=== PATIENT | female | born 1980 | race American Indian/Alaskan Native ===

== ENCOUNTER 2025-02-06 13:06 | Observation (INO) | payer OTHER ==
[~2025-02-06] VITALS: Ht 167.6 cm; Wt 69.0 kg
[~2025-02-06 13:06] MED LIST: VISTARIL25 MG
[2025-02-06 14:09] LABS: BASOPHILS 0.3 % (0.1-1.2); EOSINOPHILS 0.2 % (0.7-5.8); LYMPHOCYTES 7.6 % (19.3-51.7); MCH 32.4 PG (25.6-32.2); MCHC 34.2 g/dL (32.2-35.5); MCV 94.6 fL (79.4-94.8); MONOCYTES 9.1 % (4.7-12.5); NEUTROPHILS 82.0 % (34.0-71.1); RBC 4.48 M/uL (3.93-5.22)
[2025-02-06] MEDS ORDERED: SODIUM CHLORIDE 0.9% 1,000 ML IV PRN ×2 (14:15→15:15)
[2025-02-06 14:29] LABS: ALT (SGPT) 37.0 U/L (14-59); AST (SGOT) 40.0 U/L (15-37); GLOMERULAR FILTRATION RATE,EST 56.0 mL/min (>60); PROTEIN, TOTAL 9.0 g/dL (6.4-8.2); UREA NITROGEN 12.0 mg/dL (7-18)
[2025-02-06] MEDS ORDERED: HYDROmorphone HCL 1 MG/ML SYR IV ONE (14:30)
[2025-02-06] MEDS ORDERED: KETOROLAC TROMETHAMINE 30 MG/ML VIAL IV PRN (17:00)
[2025-02-06] MEDS ORDERED: MORPHINE SULFATE 10 MG/ML VIAL IV PRN (17:00)
[2025-02-06] MEDS ORDERED: LACTATED RINGER'S 1,000 ML IV SCH (17:00)
[2025-02-06] MEDS ORDERED: LORazepam 2 MG/ML VIAL IV PRN (17:15)
[2025-02-06 17:28] LABS: BLOOD/HGB, URINE MODERATE (Negative); KETONE, URINE NEGATIVE (Negative); LEUK ESTERASE, URINE SMALL (negative); NITRITE, URINE POSITIVE (negative)
--- NOTE | 2025-02-06 17:30 | NUR ---
THIS RN TO ED ROOM 10 TO RECEIVE REPORT FROM ALEK IRWIN RN AND TRANSPORT PT VIA STRETCHER TO MS RM 116. PT AMBULATES FROM STRETCHER TO HOSPITAL BED WITH SUPERVISION ONLY. WT AND VS OBTAINED. THIS RN REMAINS IN ROOM FOR ADMISSION.
[2025-02-06 17:33] LABS: EPITHELIAL CELLS, URINE SQUAMOUS 2+ /lpf (0-1+)
[2025-02-06 17:34] LABS: BACTERIA, URINE 1+ /hpf (negative); CASTS, URINE NONE SEEN \\lpf; CRYSTALS, URINE NONE SEEN (0-1+); REFLEX CULTURE, URINE No (No)
[2025-02-06 17:41] VITALS: BP 126/79
[2025-02-06] MEDS ORDERED: POTASSIUM CHLORIDE 10 MEQ TABCR PO SCH (18:00)
--- NOTE | 2025-02-06 18:17 | NUR ---
ADMISSION COMPLETE. PT IS RESTING IN BED WATCHING TELEVISION AND EATING ICE CHIPS. PT REPORTING PAIN HAS DECREASED TO 4/10 AFTER MORPHINE ADMINISTRATION IN ED JUST PRIOR TO THIS RN'S ARRIVAL AND HOT PACK APPLIED TO ABDOMEN. BOWEL TONES ARE ACTIVE, PT IS TENDER TO THE RUQ ONLY. DENIES NAUSEA AT THIS TIME. IVF INFUSING TO LAC WNL. SCDs IN PLACE. PT IS OCCASIONAL TEARFUL DURING ADMISSION AND REPORTS THIS IS DUE TO THOUGHTS OF HER CHILDREN AND HER CONCERNS REGARDING HER DRINKING PATTERNS. PT REPORTS SHE LAST DRANK SATURDAY AND WHEN SHE DRINKS SHE GENERALLY DRINKS A PINT AT A TIME. PT DENIES ANY WITHDRAWALS IN HER PAST. PTs CIWA CURRENTLY A 2 FOR TEARFULNESS/ANXIETY. PT HAS NO REQUESTS. CALL LIGHT IN REACH.
--- NOTE | 2025-02-06 19:00 | NUR ---
PT RESTING IN BED WITH EYES CLOSED, RR EVEN AND UNLABORED. CALL LIGHT IN REACH.
--- NOTE | 2025-02-06 19:45 | NUR ---
RECEIVED REPORT. PT RESTING IN BED WITH EYES CLOSED, RISE AND FALL OF CHEST OBSERVED. CALL LIGHT IN REACH
--- NOTE | 2025-02-06 20:00 | NUR ---
PATIENT CALLED THE NURSES STATION TO REQUEST MORE ICE WATER AND JELLO, THIS IS PROVIDED, PATIENT IS ALERT AND ORIENTED. PATIENT IS RESTING IN BED CALM AND PLEASANT AFFECT. V/S STABLE AT THIS TIME. SEE CHARTING
[2025-02-06 20:03] VITALS: BP 134/89
[2025-02-06 20:48] VITALS: BP 124/70
[2025-02-06 20:49] VITALS: BP 124/70
--- NOTE | 2025-02-06 20:58 | NUR ---
VITALS, ASSESSMENT, EVENING MEDS. PT REPORTS 6/10 PAIN, GIVEN IV TORADOL AND REFRESHED HEAT PACK. ORIENTED TO PLAN FOR TONIGHT AND PLAN FOR SURGERY TOMORROW. NO OTHER NEEDS, CALL HAYDEE MATAMOROS
[2025-02-06] MEDS ORDERED: FAMOTIDINE 20 MG/ 2 ML VIAL IV SCH (21:00)
[2025-02-06] MEDS ORDERED: CEFAZOLIN SODIUM 2 GM/20 ML SYR IV SCH (22:00)
--- NOTE | 2025-02-06 22:13 | NUR ---
PT RESTING WITH EYES CLOSED, RISE AND FALL OF CHEST OBSERVED. CALL LIGHT IN REACH
--- NOTE | 2025-02-06 23:45 | NUR ---
PT RESTING IN BED WITH EYES CLOSED, RISE AND FALL OF CHEST OBSERVED, CALL LIGHT IN REACH
[2025-02-07] VITALS (11 sets, daily range): BP systolic 99–129; BP diastolic 63–84
--- NOTE | 2025-02-07 00:52 | NUR ---
VITALS, AM MEDS. GIVEN PRN MORPHINE FOR 4/10 INCREASING PAIN. REPLACED HEAT PACK AND GIVEN WARM BLANKET. REMOVED WATER FROM BEDSIDE, PT NOW NPO. NO OTHER NEEDS, CALL LIGHT INREACH
--- NOTE | 2025-02-07 02:46 | NUR ---
GIVEN 2MG IV MORPHINE FOR INCREASING 4/10 PAIN. ALSO GIVEN HEAT PACK AND WARM BLANKET. REPLACED IV FLUIDS. SUPPORTIVE PARENTS AT BEDSIDE. CALL LIGHT IN REACH
[2025-02-07 05:24] LABS: BASOPHILS 0.2 % (0.1-1.2); EOSINOPHILS 1.0 % (0.7-5.8); LYMPHOCYTES 7.3 % (19.3-51.7); MCH 32.7 PG (25.6-32.2); MCHC 33.9 g/dL (32.2-35.5); MCV 96.4 fL (79.4-94.8); MONOCYTES 10.3 % (4.7-12.5); NEUTROPHILS 80.5 % (34.0-71.1); RBC 3.09 M/uL (3.93-5.22)
[2025-02-07 05:41] LABS: ALT (SGPT) 22.0 U/L (14-59); AST (SGOT) 16.0 U/L (15-37); GLOMERULAR FILTRATION RATE,EST 63.0 mL/min (>60); PROTEIN, TOTAL 6.1 g/dL (6.4-8.2); UREA NITROGEN 14.0 mg/dL (7-18)
--- NOTE | 2025-02-07 06:19 | NUR ---
AM MEDS, GIVEN PRN TORADOL FOR 4/10 PAIN. PERFORMED CHG [place] AND CHANGED BED LINENS. GIVEN ORAL SWABS AND TOOTHBRUSH/TOOTHPASTE ON REQUEST. NO OTHER NEEDS, CALL LIGHT IN REACH
--- NOTE | 2025-02-07 07:10 | NUR ---
REPORT RECIEVED FROM MILDRED CASEY. PATIENT RESTING IN BED WITH HER EYES CLOSED. EVEN AND UNLABORED RESPIRATIONS NOTED. CALL LIGHT AND PERSONAL BELONGINGS ARE WITHIN REACH.
--- NOTE | 2025-02-07 09:18 | NUR ---
HOURLY ROUNDING. PATIENT APPEARS TO BE TIRED, SAYS SHE GASSY AND THAT FEELS GOOD TO HER. BOARD HAS BEEN UPDATED AND CALL LIGHT HAS BEEN PLACED WITHIN REACH
--- NOTE | 2025-02-07 09:55 | NUR ---
PATIENT SITTING UP IN BED VISITING WITH HER MOM. PATIENT REPORTS PAIN "IS OKAY FOR NOW IF I'M NOT MOVING, BUT IS BETTER THAN EARLIER". PATIENT WITHOUT FURTHER NEEDS AT THIS TIME. CALL LIGHT AND PERSONAL BELONGINGS ARE WITHIN REACH.
--- NOTE | 2025-02-07 10:13 | NUR ---
PATIENT SITTING UP IN BED VISITING WITH HER MOM. FRESH COFFEE PROVIDED TO PATIENT'S MOM. PATIENT WITHOUT ANY NEEDS AT THIS TIME. CALL LIGHT AND PERSONAL BELONGINGS ARE WITHIN REACH.
--- NOTE | 2025-02-07 10:55 | NUR ---
MED REC COMPLETE
[2025-02-07] MEDS ORDERED: SODIUM CHLORIDE 0.9% 60 ML IV ONE (11:12)
--- NOTE | 2025-02-07 11:25 | NUR ---
PATIENT REQUESTING PAIN MEDICATION. THIS RN IN ROOM TO MEDICATE PATIENT. WHEN ENTERED ROOM, PATIENT REPORTED HER FINGERS WERE NUMB. AFTER ASSESSING PATIENT HANDS, PATIENT'S FINGERTIPS WERE NOTED TO BE PALE. PATIENT DENIES HAVING A HISTORY OF RAYNAUD'S SYNDROME. VITAL SIGNS WERE TAKEN AND WERE STABLE. PATIENT MEDICATED PER EMAR. BEFORE LEAVING PATIENT'S ROOM, COLOR WAS NOTED TO HAVE RETURNED TO PATIENT'S BILATERAL FINGER TIPS AND PATIENT STATES THE "NUMBNESS IS GOING AWAY". PATIENT WITHOUT FURTHER NEEDS AT THIS TIME. CALL LIGHT AND PERSONAL BELONGINGS ARE WITHIN REACH.
--- NOTE | 2025-02-07 12:17 | NUR ---
PATIENT OFF THE FLOOR AT THIS TIME.
[2025-02-07] MEDS ORDERED: ACETAMINOPHEN 1,000 MG/100 ML VIAL ONE (12:42)
--- NOTE | 2025-02-07 13:29 | NUR ---
02/07/25 1329 Sheets,Sunita 1321 PT ARRIVED TO PACU ON 6L VIA MASK, PT ASLEEP AND RESP EVEN AND UNLABORED. ORAL AIRWAY IN PLACE, HOB INCREASED SLIGHTLY.
[2025-02-07] MEDS ORDERED: ROCURONIUM BROMIDE 50 MG/5 ML SYR ONE (13:30)
[2025-02-07] MEDS ORDERED: KETOROLAC TROMETHAMINE 30 MG/ML VIAL ONE (13:30)
[2025-02-07] MEDS ORDERED: KETAMINE in NS 50 MG/5 ML SYR ONE (13:30)
[2025-02-07] MEDS ORDERED: DEXAMETHASONE SOD PHOS 4 MG/ML VIAL ONE (13:30)
[2025-02-07] MEDS ORDERED: LIDOCAINE HCL 2% 5 ML SDV ONE (13:30)
[2025-02-07] MEDS ORDERED: TYLENOL EXTRA500 MG PO (13:37)
[2025-02-07] MEDS ORDERED: MOTRIN IB200 MG PO (13:37)
[2025-02-07] MEDS ORDERED: HYDROCODON-ACE1 EA11 PO (13:38)
--- NOTE | 2025-02-07 14:05 | NUR ---
REPORT RECIEVED FROM MILDRED TINOCO. PATIENT SELF TRANSFERED FROM STRETCHER TO HOSPITAL BED. PATIENT REPORTS HAVING MINIMAL TO NO PAIN AT THIS TIME. VITAL SIGNS TAKEN AND ARE STABLE. SCD'S CONNECTED AND TURNED ON. LR INFUSING CONTINUOUS AT 100ML/HR. PATIENT FATHER AT BEDSIDE. PATIENT IS 98% ON ROOM AIR. CPOX AT BEDSIDE. PATIENT WITHOUT ANY NEEDS AT THIS TIME. CALL LIGHT AND PERSONAL BELONGINGS ARE WITHIN REACH.
[2025-02-07] MEDS ORDERED: IBUPROFEN 600 MG TAB PO PRN (14:15)
[2025-02-07] MEDS ORDERED: ACETAMINOPHEN 500 MG TAB PO PRN (14:15)
[2025-02-07] MEDS ORDERED: OXYCODONE HCL 5 MG TAB PO PRN (14:15)
[2025-02-07] MEDS ORDERED: SEVOFLURANE 250 ML BTL INH ONE (14:43)
--- NOTE | 2025-02-07 15:06 | NUR ---
HOURLY POST OP VITALS STABLE. PT RESTING IN BED AAO, DENIES PAIN. LAP SITES C/D/I. CALL LIGHT IN REACH. PRIMARY RN UPDATED.
--- NOTE | 2025-02-07 15:30 | NUR ---
PATIENT EATING JELLO AND APPLESAUCE AND TOLERATING WELL. SANDWICH BOX PROVIDED. PATIENT DENIES ANY PAIN OR NAUSEA. PATIENT WITHOUT FURTHER NEEDS. FRESH ICE WATER PROVIDED. CALL LIGHT AND PERSONAL BELONGINGS ARE WITHIN REACH. PATIENT IS 98% ON ROOM AIR. CPOX AT BEDSIDE.
--- NOTE | 2025-02-07 16:10 | NUR ---
PATIENT UP TO BATHROOM TO VOID. INCISIONS ARE WITH MINIMAL DRAINAGE. PATIENT VOIDED WITHOUT COMPLICATIONS. PATIENT ABLE TO EAT HALF A SANDWICH AND TOLERATING WELL. PATIENT MEDICATED PER EMAR FOR 4/10 PAIN. PATIENT DENIES ANY NAUSEA. FRESH ICE WATER PROVIDED. PATIENT WITHOUT FURTHER NEEDS AT THIS TIME. PATIENT IS 99% ON ROOM AIR, CPOX AT BEDSIDE. PATIENT MOM AT BEDSIDE. CALL LIGHT AND PERSONAL BELONGINGS ARE WITHIN REACH. VITAL SIGNS TAKEN AND ARE STABLE.
--- NOTE | 2025-02-07 16:46 | NUR ---
DR KAMARA NOTIFIED OF PATIENT MEETING CRITERIA FOR DISCHARGE PER ORDER.
--- NOTE | 2025-02-07 19:03 | OR ---
[facility] [address], [place] [address] Signed DATE OF OPERATION: 02/07/2025 SURGEON: Troy Kamara MD PREOPERATIVE DIAGNOSIS: Acute calculous cholecystitis. POSTOPERATIVE DIAGNOSIS: Acute calculous cholecystitis (single large gallstone). PROCEDURES: 1. Laparoscopic cholecystectomy with intraoperative cholangiogram. 2. Surgeon-directed fluoroscopy. 3. Adhesiolysis of right hepatic lobe adhesions of capsule of liver to diaphragm. ANESTHESIA: General endotracheal; Linda Nassar CRNA and local 10 mL of 0.25% Marcaine with epinephrine. INDICATION: This 44-year-old woman presented to the emergency room yesterday with significant right upper abdominal pain. Evaluation showed a white count of 22,000. She did have a sepsis workup. Her lactate was normal. Gallbladder ultrasound showed a single large gallstone without thickening of the gallbladder wall. She is admitted at this time to undergo cholecystectomy preferred by laparoscopic approach. She understands the risk of bleeding, infection, common duct injury, need for other indicated procedures and of course failure to cure her symptoms. She has been fully resuscitated and has been with antibiotic therapy for the past 24 hours. FINDINGS: She had no ascites or carcinomatosis. The liver itself was normal, though she did have capsule adhesions of the liver to the diaphragm. These were incised. The gallbladder itself was subacutely inflamed. Once excised, the gallbladder had a single large gallstone. Intraoperative cholangiogram was normal. There were no other findings of concern. DESCRIPTION OF PROCEDURE: The patient was brought to the operating room, given a general endotracheal anesthetic. Antibiotic Ancef was given intraoperatively just before surgery. Sequential compression device stockings were used and heparin subcutaneously administered. After satisfactory Electronically Signed By: TROY KAMARA MD 02/07/25 1903 PATIENT NAME: MARICRUZ PARKER OPERATIVE REPORT DATE OF : 82 REPORT #: [id number] PHYSICIAN: TROY KAMARA MD PCP: VI OLEARY [facility] REPORT IS CONFIDENTIAL AND NOT TO BE RELEASED WITHOUT AUTHORIZATION [facility] [address], [place] [address] Signed general endotracheal anesthesia, the abdomen was prepared with chlorhexidine solution and draped sterilely. An infraumbilical incision was made and using an open Emily cannula technique pneumoperitoneum was achieved to a level of 14 mmHg of carbon dioxide gas. Intra-abdominal inspection showed no sign of ascites or carcinomatosis. The liver itself had mild fatty infiltration, but relatively extensive adhesions in the capsule of the liver to the diaphragm. Three additional trocars were placed in usual configuration in the subxiphoid, right midclavicular, and right anterior axillary line. Prior to elevating the gallbladder, lysis of adhesions over the liver were undertaken so as to avoid excessive trauma in the capsule of the liver with elevation of the gallbladder. Gallbladder was grasped and elevated cephalad exposing relatively elongated subacutely inflamed gallbladder. The infundibulum was grasped and retracted laterally and using blunt electrocautery dissection the triangle of Calot was dissected free. A dominant cystic artery was identified and doubly clipped and later divided. Ultimately, the cystic duct itself was well identified. Critical view of safety was maintained and assured for this. A clip was applied high on the gallbladder cystic duct junction and a transverse choledochotomy made in the cystic duct. Egress of thickened yellow bile was noted. Using an Merchant type cholangiocatheter free flow of contrast was noted in the biliary tree with prompt emptying into the duodenum. The cystic duct was relatively lengthy. With additional injection, retrograde filling to the common hepatic duct was noted. The catheter was removed. The cystic duct was triply clipped and divided. The gallbladder was then dissected free in a retrograde fashion using electrocautery. Gallbladder was extracted through the infraumbilical port site without problem opened on the back table, found to have a single large round dark gallstone. The mucosa showed subacute inflammation. Irrigation was undertaken in the subhepatic space. There was no sign of bile leak, bleeding or other problems. The trocars removed under direct visualization showing no sign of bleeding. Plans were then made for closure. The infraumbilical fascial incision was reapproximated with interrupted 0 Vicryl suture. 10 mL of 0.25% Marcaine with epinephrine injected locally. The skin was then closed with interrupted 3-0 Vicryl. Steri-Strips were applied. The patient was ultimately extubated and transferred to the recovery room in good condition having suffered no complications. Sponge, needle, and instrument counts reported as correct x3. MD JAXSON Denney/KALYANL /[id number] Electronically Signed By: TROY KAMARA MD 02/07/25 1903 PATIENT NAME: MARICRUZ PARKER OPERATIVE REPORT DATE OF : [birth year] REPORT #: [id number] PHYSICIAN: TROY KAMARA MD PCP: VI OLEARY REPORT IS CONFIDENTIAL AND NOT TO BE RELEASED WITHOUT AUTHORIZATION [facility] [address] [facility] [place], [place] [address] Signed cc: Dr. Richardson Plasencia [facility] LOREN Santana [facility] Copies: ~ Electronically Signed By: TROY KAMARA MD 02/07/25 1903 PATIENT NAME: MARICRUZ PARKER OPERATIVE REPORT DATE OF : [birth year] REPORT #: [id number] PHYSICIAN: TROY KAMARA MD PCP: VI OLEARY REPORT IS CONFIDENTIAL AND NOT TO BE RELEASED WITHOUT AUTHORIZATION
--- NOTE | 2025-02-07 19:03 | HP ---
[facility] [address], [place] [address] Signed ADMISSION DATE: 02/06/2025 REASON FOR ADMISSION: Acute calculous cholecystitis. HISTORY OF PRESENT ILLNESS: This 44-year-old Mong[place]ian woman had presented to the emergency room and was evaluated thoroughly by Dr. Plasencia with complaints of upper right abdominal pain for the past "60 hours." She had no associated nausea, vomiting, or persistent and unrelenting pain. Evaluation in emergency room included lab studies, which showed an elevated white count of 22,000 with hematocrit of 42.4 with a platelet count of 311,000. Chem profile notable for hypokalemia with a potassium of 3.1, chloride 94, creatinine elevated at 1.22, lactic acid of 0.9, bilirubin 1.1, alkaline phosphatase of 230 with normal ALT of 37, AST of 40. Beta-hCG was noted to be negative. Urinalysis has not yet received. A gallbladder ultrasound was performed on the suspicion of acute cholecystitis, which confirmed multiple gallstones, but no evidence of gallbladder wall thickening per se. She is admitted at this time for further evaluation and care. PAST MEDICAL HISTORY: Dominantly notable for childbirth x6. Due to substance abuse issues, all of her children essentially live with other family. Her youngest is apparently 9 years old. The patient does actively smoke episodically. Still drinks alcohol and admits to occasional drug use including methamphetamine. The patient has had right ACL surgery, but no abdominal operations. SOCIAL HISTORY: She is . Her is not in attendance at this time, and children are out of her care at this time. PHYSICAL EXAMINATION: GENERAL: A very pleasant [place]ian woman who looks to be nontoxic. VITAL SIGNS: Height is 5 feet 6 inches, weight is 65 kg, BMI 23.3. NECK: Trachea is midline. She has no hoarseness. CHEST: Clear. HEART: Regular without murmur. ABDOMEN: Not obese and not distended. She has mild tenderness in the epigastric and right subcostal area. There is no ascites. EXTREMITIES: Show no clubbing, cyanosis, or edema. LAB STUDIES: As previously noted include a white count of 22.4, hematocrit 42.4, platelets 311,000. Electronically Signed By: TROY KAMARA MD 02/07/25 1903 PATIENT NAME: MARICRUZ PARKER HISTORY AND PHYSICAL DATE OF : 82 REPORT #: [id number] PHYSICIAN: TROY KAMARA MD PCP: VI OLEARY [facility] REPORT IS CONFIDENTIAL AND NOT TO BE RELEASED WITHOUT AUTHORIZATION [facility] [address], [place] [address] Signed Chem profile abnormal for potassium of 3.1, sodium 132, chloride 94, creatinine is 1.22, glucose 109, lactic acid 0.9, bilirubin 1.1, AST 40, ALT 37, alkaline phosphatase 230, and lipase 14. Beta-hCG is negative. Abdominal ultrasound confirms gallstones without gallbladder wall thickening. ASSESSMENT: She has clinical findings of acute cholecystitis and gallstones are noted as well. I discussed with her in detail using the white board in the emergency room, the pathophysiology of biliary disease including calculous cholecystitis and recommendation to include cholecystectomy. The risk of bleeding, infection, bile duct injury, need for open rather than laparoscopic approach, and so forth were all reviewed in detail. Also discussed the issues of possible common duct stone for which a laparoscopic and/or open common duct exploration would be a consideration if necessary. She will be admitted and given additional fluid resuscitation, electrolyte correction, IV antibiotics and allowed clear liquids in limited amounts for comfort, but n.p.o. after midnight and we will plan for cholecystectomy and other indicated procedures tomorrow as appropriate. She understands this and agrees with this plan. MD JAXSON Denney/KALYANL /[id number] Copies: ~ Electronically Signed By: TROY KAMARA MD 02/07/25 1903 PATIENT NAME: MARICRUZ PARKER HISTORY AND PHYSICAL DATE OF : 82 REPORT #: [id number] PHYSICIAN: TROY KAMARA MD PCP: VI OLEARY [facility] REPORT IS CONFIDENTIAL AND NOT TO BE RELEASED WITHOUT AUTHORIZATION
[2025-02-07] MEDS ORDERED: FAMOTIDINE 20 MG TAB PO SCH (21:00)
--- NOTE | 2025-02-11 12:21 | PATH ---
[facility] [address] [facility] [place], [place] [address] Signed SPECIMEN(S): A GALLBLADDER WITH STONE SPECIMEN SOURCE: A. GALLBLADDER WITH STONE CLINICAL HISTORY: Acute cholecystitis and cholelithiasis FINAL PATHOLOGIC DIAGNOSIS: Gallbladder, cholecystectomy: - Mild chronic cholecystitis with cholelithiasis. - Negative for dysplasia and malignancy. SDL MICROSCOPIC EXAMINATION: Histologic sections of all submitted blocks are examined by light microscopy. These findings, together with the gross examination, support the pathologic diagnosis. GROSS DESCRIPTION: The specimen, labeled and designated "Kaylyn Coles, gallbladder with stone," is received in formalin and consists of Specimen: Surgically disrupted gallbladder. Dimensions: 10.9 x 3 x 2.4 cm. Serosa: Blue-green and smooth. Cystic Duct: Unobstructed. Calculi: Present�black and multifaceted. Mucosa: Green and velvety. Wall thickness: 0.2 cm. Lymph node: No pericystic lymph nodes are grossly identified. Additional: None. Transcribing Operator Head sections are submitted in (A1). AA (under the direct supervision of a pathologist) The Gross Description was prepared using a voice recognition system. The report was reviewed for accuracy; however, sound-alike word errors, addition and/or deletions may occur. If there are any questions about this report, please contact Client Services. ADDITIONAL NOTES: Immunohistochemical and/or in situ hybridization studies if performed in this case included appropriate positive controls that reacted as expected. This PATIENT NAME: MARICRUZ COLES PATHOLOGY DATE OF : [birth year] REPORT #: [id number] PHYSICIAN: APOLLO GASTELUM PCP: VI OLEARY TRAIN DIRECTOR-BC REPORT IS CONFIDENTIAL AND NOT TO BE RELEASED WITHOUT AUTHORIZATION [facility] [address] [facility] [place] [address] Signed test was developed and its performance characteristics determined by [facility]. It has not been cleared or approved by the U.S. Food and Drug Administration. The FDA has determined that such clearance or approval is not necessary. This test is used for clinical purposes. It should not be regarded as investigational or for research. [facility] is certified under the Clinical Laboratory Improvement Amendments of 1988 (CLIA) as qualified to perform high complexity clinical laboratory testing. PERFORMING LABORATORY: Technical component was performed by [facility], [address] [place] [id number] (CLIA# [id number]). Professional interpretation was performed by [facility], [address] [place] [id number] (CLIA#: [id number]). Diagnostician: Jasmin Lyon MD Pathologist Electronically Signed 02/11/2025 Copies: ~ PATIENT NAME: MARICRUZ COLES PATHOLOGY DATE OF : [birth year] REPORT #: [id number] PHYSICIAN: APOLLO GASTELUM PCP: VI OLEARY TRAIN DIRECTOR- REPORT IS CONFIDENTIAL AND NOT TO BE RELEASED WITHOUT AUTHORIZATION
== END 2025-02-07 17:20 | disposition home or self-care (01) ==
LOC: ED 13:06 → MS 13:07
PROVIDERS: Emergency Medicine; ADMIT Surgery; ATTEND Surgery
PROC: BF03YZZ Plain Radiography of Gallbladder and Bile Ducts using Other Contrast (ICD-10-PCS; 2025-02-07)
PROC: 0FT44ZZ Resection of Gallbladder, Percutaneous Endoscopic Approach (ICD-10-PCS; principal; 2025-02-07 12:00)
DX: K80.10 Calculus of gallbladder with chronic cholecystitis without obstruction (principal); K66.0 Peritoneal adhesions (postprocedural) (postinfection); F17.200 Nicotine dependence, unspecified, uncomplicated
CPT/HCPCS: 00790; 36415; 74300; 76705; 80053; 81001; 83605; 83690; 84703; 85025; 85060; 87040; 88304; 96361; 96365; 96375; 96376; 99285-25; A9270; G0378; J0131; J0690; J0696; J1100; J1171; J1885; J2003; J2270; J2405; J2704; J3490; J7030; J7121; Q9967

== ENCOUNTER 2025-05-03 00:19 | Emergency (ER) | payer OTHER ==
[~2025-05-03] VITALS: Ht 167.6 cm; Wt 65.6 kg
[~2025-05-03 00:19] MED LIST changes: +HYDROCODON-ACE1 EA11 PO; +MOTRIN IB200 MG PO; +TYLENOL EXTRA500 MG PO
[2025-05-03 01:32] VITALS: BP 172/107
== END 2025-05-03 00:35 | disposition home or self-care (01) ==
LOC: ED 00:19
DX: Z02.89 Encounter for other administrative examinations (principal); F17.200 Nicotine dependence, unspecified, uncomplicated
CPT/HCPCS: 99283